=== PATIENT | male | born 1955 | race Caucasian/White ===

== ENCOUNTER 2018-05-21 15:32 | Emergency (ER) | payer BC ==
[~2018-05-21] VITALS: Ht 175.3 cm; Wt 90.3 kg
[~2018-05-21 15:32] MED LIST: AMLO1CAP5 PO; AMOX-430 PO; ECON30CR2 TP
[2018-05-21 15:44] VITALS: BP 133/74
[2018-05-21] MEDS ORDERED: BACITRACIN ZINC OINT PACKET 1 EA PACKET TP ONE (16:00)
== END 2018-05-21 16:34 | disposition home or self-care (01) ==
LOC: ER 15:37
DX: S90.424A Blister (nonthermal), right lesser toe(s), initial encounter (principal); I10 Essential (primary) hypertension; Z98.890 Other specified postprocedural states; Z79.899 Other long term (current) drug therapy; X58.XXXA Exposure to other specified factors, initial encounter; Y93.41 Activity, dancing; Y92.89 Other specified places as the place of occurrence of the external cause; Y99.8 Other external cause status
CPT/HCPCS: 10140; 99284; A6403

== ENCOUNTER 2019-01-14 19:30 | Emergency (ER) | payer BC, MEDICAID ==
[~2019-01-14] VITALS: Ht 167.6 cm; Wt 89.8 kg
[~2019-01-14 19:30] MED LIST changes: -ECON30CR2 TP; +[UNRECOGNIZED DRUG - CODE] TP
--- NOTE | 2019-01-14 20:16 | NUR ---
XRAY IN PROGRESS AT THE BEDSIDE.
--- NOTE | 2019-01-14 20:55 | NUR ---
PT REC'D A LT HAND VELCRO SPLINT. Patient discharged to home in stable condition. Written and verbal after care instructions given. Patient verbalizes understanding of instruction AND RX. PT AMBULATED OUT WITH A STEADY GAIT. VSS. NAD NOTED.
[2019-01-14 22:16] VITALS: BP 138/89
== END 2019-01-14 20:55 | disposition home or self-care (01) ==
LOC: ER 19:33
DX: S60.222A Contusion of left hand, initial encounter (principal); I10 Essential (primary) hypertension; M54.9 Dorsalgia, unspecified; Z98.890 Other specified postprocedural states; Z79.899 Other long term (current) drug therapy; W18.39XA Other fall on same level, initial encounter; Y93.89 Activity, other specified; Y92.89 Other specified places as the place of occurrence of the external cause; Y99.8 Other external cause status
CPT/HCPCS: 73130-TC

== ENCOUNTER 2019-02-12 02:50 | Emergency (ER) | payer BC, MEDICAID ==
[~2019-02-12] VITALS: Ht 170.2 cm; Wt 90.7 kg
--- NOTE | 2019-02-12 03:03 | NUR ---
PT BIBS. GEN ABDOMINAL SINCE 10PM 11/21. PT STATES "I FEEL MY STOMACH IS GOING TO EXPLODE". -NVD. PT AAOX4, VSS, BREATHING EVEN AND UNLABORED ON ROOM AIR W/ NAD NOTED. LAST BM 30 MINS AGO. PT CONNECTED TO THE MONITOR AND POX.
[2019-02-12] MEDS ORDERED: MORPHINE SULFATE INJ 4 MG/ML DISP.SYRIN ONE (03:13)
--- NOTE | 2019-02-12 03:14 | NUR ---
BLOOD DRAWN AND SENT TO LAB
[2019-02-12 03:18] LABS: BASOPHILS % (AUTO) 0.6 % (0.0-2.0); EOSINOPHILS % (AUTO) 1.8 % (0.0-6.0); HEMATOCRIT 44 % (39-51); HEMOGLOBIN 14.9 g/dL (13.5-17.5); LYMPHOCYTES # (AUTO) 2.3 /CMM (0.8-4.8); LYMPHOCYTES % (AUTO) 34.8 % (20.0-44.0); MEAN CORPUSCULAR HGB CONC 34 g/dl (31.0-36.0); MEAN CORPUSCULAR VOLUME 84 fL (80-96); MONOCYTES # (AUTO) 0.6 /CMM (0.1-1.30); MONOCYTES % (AUTO) 8.8 % (2.0-12.0); NEUTROPHILS # (AUTO) 3.5 /CMM (1.8-8.9); PLATELET COUNT (AUTO) 207 /CMM (150-450); RED BLOOD CELL COUNT(AUTO) 5.27 MIL/uL (4.5-6.0); WHITE BLOOD COUNT (AUTO) 6.5 K/uL (4.3-11.0)
[2019-02-12 03:19] LABS: APPEARANCE,URINE CLEAR (CLEAR); BILIRUBIN,URINE NEGATIVE (NEGATIVE); BLOOD, URINE NEGATIVE Ery/uL (NEGATIVE); COLOR,URINE YELLOW (YELLOW); KETONES,URINE NEGATIVE (NEGATIVE); LEUKOCYTE ESTERASE ,URINE NEGATIVE (NEGATIVE); NITRITE, URINE NEGATIVE (NEGATIVE); PH,URINE 5.5 (5.0-8.0); PROTEIN,URINE NEGATIVE (NEGATIVE); UGLUCOSE NEGATIVE (NEGATIVE); UROBILINOGEN,URINE 0.2 EU/dL (0.2)
[2019-02-12 03:27] LABS: CREATININE 1.1 mg/dL (0.6-1.3); POTASSIUM 3.8 mmol/L (3.5-5.1)
[2019-02-12] MEDS ORDERED: MORPHINE SULFATE INJ 2 MG/ML DISP.SYRIN IV ONE (03:30)
[2019-02-12] MEDS ORDERED: CT SWABBABLE VALVE TRANS SET 1 EA INFUS.SET MC ONE (03:37)
[2019-02-12] MEDS ORDERED: IOHEXOL-300 100 ML VIAL IV ONE (03:37)
[2019-02-12] MEDS ORDERED: IV NS 0.9% 0 ML IV ONE (03:37)
--- NOTE | 2019-02-12 03:46 | NUR ---
PT TAKEN TO CT
--- NOTE | 2019-02-12 03:54 | NUR ---
PT BACK FROM CT
--- NOTE | 2019-02-12 05:06 | NUR ---
Patient is resting comfortably in bed with eyes closed. Easily aroused. VSS
--- NOTE | 2019-02-12 05:30 | NUR ---
Patient discharged to home in stable condition. Written and verbal after care instructions given. Patient verbalizes understanding of instruction.
[2019-02-12 05:32] VITALS: BP 117/84
== END 2019-02-12 05:32 | disposition home or self-care (01) ==
LOC: ER 02:55
DX: R10.33 Periumbilical pain (principal); I10 Essential (primary) hypertension; R10.30 Lower abdominal pain, unspecified; M54.9 Dorsalgia, unspecified; Z98.890 Other specified postprocedural states; Z79.899 Other long term (current) drug therapy
CPT/HCPCS: 36415; 74176; 80048; 81001; 85025; 96374; 99284; J2270; 81000-TC; J7050; Q9967

== ENCOUNTER 2019-03-05 06:48 | Emergency (ER) | payer BC ==
[~2019-03-05] VITALS: Ht 170.2 cm; Wt 90.7 kg
[~2019-03-05 06:48] MED LIST changes: +ECON30CR4 TP; -[UNRECOGNIZED DRUG - CODE] TP
--- NOTE | 2019-03-05 06:58 | NUR ---
PT PRESENTED TO THE ER WITH A C/O BACK PAIN WITH LLE NUMBNESS X 2 DAYS. PT HAS A HX OF BACK PAIN. PT AMBULATED TO ER #2 WITH A SLOW STEADY GAIT.
--- NOTE | 2019-03-05 07:00 | NUR ---
DR Law GONZALES IS AT THE BEDSIDE SPEAKING TO THE PT.
--- NOTE | 2019-03-05 07:05 | NUR ---
REPORT GIVEN TO ROSARIO OLMOS FOR STEPHANY.
[2019-03-05] MEDS ORDERED: MORPHINE SULFATE INJ 4 MG/ML DISP.SYRIN ONE (07:11)
--- NOTE | 2019-03-05 07:15 | NUR ---
Morphine 4mg given IM.
[2019-03-05 07:19] VITALS: BP 140/88
--- NOTE | 2019-03-05 07:20 | NUR ---
Patient discharged to home in stable condition. Written and verbal after care instructions given. Patient verbalizes understanding of instruction.
[2019-03-05] MEDS ORDERED: MORPHINE SULFATE INJ 10 MG/ML DISP.SYRIN IM ONE (07:30)
== END 2019-03-05 07:20 | disposition home or self-care (01) ==
LOC: ER 06:48
DX: M54.42 Lumbago with sciatica, left side (principal); I10 Essential (primary) hypertension; Z98.890 Other specified postprocedural states; Z88.8 Allergy status to other drugs, medicaments and biological substances; Z88.1 Allergy status to other antibiotic agents; Z79.899 Other long term (current) drug therapy
CPT/HCPCS: 99281; J2270

== ENCOUNTER 2021-10-08 17:30 | Emergency (ER) | payer BC ==
[~2021-10-08] VITALS: Ht 170.2 cm; Wt 90.7 kg
[2021-10-08] MEDS ORDERED: DOXY100C2 PO (20:46)
[2021-10-08 20:48] VITALS: BP 138/77
[2021-10-08] MEDS ORDERED: DOXYCYCLINE HYCLATE (100 MG) 100 MG TABLET ONE (20:49)
[2021-10-08] MEDS ORDERED: DEXAMETHASONE SOD PHOSPHATE 10 MG/ML VIAL ONE (20:49)
[2021-10-08] MEDS ORDERED: DOXYCYCLINE HYCLATE (100 MG) 100 MG TABLET PO ONE (21:00)
[2021-10-08] MEDS ORDERED: DEXAMETHASONE SOD PHOSPHATE 10 MG/ML VIAL IM ONE (21:00)
== END 2021-10-08 20:55 | disposition home or self-care (01) ==
LOC: ER 17:42
DX: J01.90 Acute sinusitis, unspecified (principal); Z20.822 Contact with and (suspected) exposure to COVID-19; I10 Essential (primary) hypertension; Z88.1 Allergy status to other antibiotic agents
CPT/HCPCS: 99284; 71045; 96372; 87070; 87880; U0003; J1100; C9803; 86403-TC

== ENCOUNTER 2022-03-21 17:21 | Emergency (ER) | payer MEDICARE, OTHER ==
[~2022-03-21] VITALS: Ht 170.2 cm; Wt 90.7 kg
[~2022-03-21 17:21] MED LIST changes: +DOXY100C2 PO
[2022-03-21 17:47] VITALS: BP 175/91
[2022-03-21] MEDS ORDERED: TRANEXAMIC ACID 1,000 MG in IV NS 0.9% 100 ML IV STA (17:49)
[2022-03-21] MEDS ORDERED: diphenhydrAMINE HCL 50 MG/ML VIAL IV ONE (18:00)
[2022-03-21] MEDS ORDERED: methylPREDNISolone SOD SUCC 125 MG/2ML VIAL IV ONE (18:00)
[2022-03-21] MEDS ORDERED: diphenhydrAMINE HCL 50 MG/ML VIAL ONE (18:15)
[2022-03-21] MEDS ORDERED: methylPREDNISolone SOD SUCC 125 MG/2ML VIAL ONE (18:15)
--- NOTE | 2022-03-21 20:12 | NUR ---
Patient does not wish to proceed with medical care recommended by Dr. THOMPSON. Patient given information related to possible complications, up to and including , which could occur as a result of leaving the hospital at this time. Patient verbalizes understanding of risks involved due to leaving against medical advice. Patient has signed AMA form. IV removed. Catheter intact and site benign. Pressure and 4x4 applied to site. No bleeding noted.
== END 2022-03-21 22:25 | disposition left against medical advice (07) ==
LOC: ER 17:23
DX: T78.3XXA Angioneurotic edema, initial encounter (principal); I10 Essential (primary) hypertension; Z98.890 Other specified postprocedural states; Z79.899 Other long term (current) drug therapy; Z88.8 Allergy status to other drugs, medicaments and biological substances
CPT/HCPCS: 99284; 96374; 96375; J1200; J2930; J7030; A4223

== ENCOUNTER 2022-04-27 05:51 | Emergency (ER) | payer MEDICARE, OTHER ==
[~2022-04-27] VITALS: Ht 170.2 cm; Wt 95.3 kg
--- NOTE | 2022-04-27 06:45 | NUR ---
BIBS. TO ER BED 09. NOT RESP DISTRESS, BREATHING EVEN AND UNLABORED. CAME IN FOR R SIDE UPPER AND LOWER LIP SWELLING . PER PT, HE ATE MUSHROOMS LAST NIGHT. DENIES ANY ALLERGY TO ANYTHING. NO AIRWAY COMPROMISE. MD IS AT THE BEDSIDE FOR EVAL.
[2022-04-27] MEDS ORDERED: FAMOTIDINE (20 MG) 20 MG TABLET ONE (06:55)
[2022-04-27] MEDS ORDERED: predniSONE 20 MG TABLET ONE (06:55)
[2022-04-27] MEDS ORDERED: diphenhydrAMINE HCL 50 MG CAPSULE ONE (06:55)
[2022-04-27] MEDS ORDERED: FAMOTIDINE (20 MG) 20 MG TABLET PO ONE (07:00)
[2022-04-27] MEDS ORDERED: diphenhydrAMINE HCL 25 MG CAPSULE PO ONE (07:00)
[2022-04-27] MEDS ORDERED: predniSONE 50 MG TABLET PO ONE (07:00)
[2022-04-27] MEDS ORDERED: PRED50TA PO (08:58)
--- NOTE | 2022-04-27 09:03 | NUR ---
Patient discharged to home in stable condition. Written and verbal after care instructions given. Patient verbalizes understanding of instruction.
[2022-04-27 09:04] VITALS: BP 138/77
== END 2022-04-27 09:04 | disposition home or self-care (01) ==
LOC: ER 05:54
DX: T78.1XXA Other adverse food reactions, not elsewhere classified, initial encounter (principal); Z79.899 Other long term (current) drug therapy; X58.XXXA Exposure to other specified factors, initial encounter
CPT/HCPCS: 99284; Q0163; J7512

== ENCOUNTER 2023-05-14 11:38 | Emergency (ER) | payer MEDICARE, OTHER ==
[~2023-05-14] VITALS: Ht 170.2 cm; Wt 95.3 kg
[~2023-05-14 11:38] MED LIST changes: +PRED50TA PO
[2023-05-14 12:37] LABS: CALCIUM, SERUM 8.9 mg/dL (8.5-10.1); CREATININE 1.1 mg/dL (0.6-1.3); POTASSIUM 4.2 mmol/L (3.5-5.1)
[2023-05-14 12:39] LABS: BASOPHILS % (AUTO) 0.4 % (0.0-2.0); EOSINOPHILS # (AUTO) 0.1 K/uL (0.0-0.7); EOSINOPHILS % (AUTO) 1.9 % (0.0-6.0); HEMATOCRIT 43 % (39-51); LYMPHOCYTES # (AUTO) 3.5 K/uL (0.8-4.8); LYMPHOCYTES % (AUTO) 49.6 % (20.0-44.0); MEAN CORPUSCULAR HEMOGLOBIN 28 PG (26.0-33.0); MEAN CORPUSCULAR HGB CONC 33 g/dl (31.0-36.0); MEAN CORPUSCULAR VOLUME 86 fL (80-96); MONOCYTES # (AUTO) 0.4 K/uL (0.1-1.30); NEUTROPHILS % (AUTO) 42.1 % (43.0-81.0); PLATELET COUNT (AUTO) 180 K/uL (150-450); RED BLOOD CELL COUNT(AUTO) 4.96 MIL/uL (4.5-6.0); RED CELL DISTRIBUTION WIDTH 14.5 % (11.5-15.0); WHITE BLOOD COUNT (AUTO) 7.1 K/uL (4.3-11.0)
[2023-05-14 12:43] LABS: ALBUMIN 3.5 g/dL (3.4-5.0); BILIRUBIN,DIRECT 0.1 mg/dL (0.0-0.2); BILIRUBIN,TOTAL 0.3 mg/dL (0.2-1.0); TOTAL PROTEIN, SERUM 7.1 g/dL (6.4-8.2)
[2023-05-14] MEDS ORDERED: DOCU-141 PO (13:43)
[2023-05-14 13:55] VITALS: BP 118/77; TEMP 98.4; O2SAT 100
== END 2023-05-14 13:56 | disposition home or self-care (01) ==
LOC: ER 11:47
DX: R10.84 Generalized abdominal pain (principal); I10 Essential (primary) hypertension; Z98.890 Other specified postprocedural states; Z79.899 Other long term (current) drug therapy
CPT/HCPCS: 36415; 80048-TC; 80076-TC; 83690-TC; 85025-TC

== ENCOUNTER 2024-08-26 16:54 | Emergency (ER) | payer MEDICARE, OTHER ==
[~2024-08-26 16:54] MED LIST changes: +DOCU-141 PO
== END 2024-08-26 18:03 | disposition left against medical advice (07) ==
LOC: ER 16:59
DX: K57.92 Diverticulitis of intestine, part unspecified, without perforation or abscess without bleeding (principal); Z53.21 Procedure and treatment not carried out due to patient leaving prior to being seen by health care provider